=== PATIENT | male | born 1985 | race Caucasian/White ===

== ENCOUNTER 2020-04-30 07:30 | Observation (INO) ==
[2020-04-30] MEDS ORDERED: DIPH/TET/ACEL PERT BOOSTER VACCINE 0.5 ML VIAL IM ONE (07:54)
[2020-04-30] MEDS ORDERED: VANCOMYCIN INJ 1,500 MG in SODIUM CHLORIDE 0.9% 250 ML IV STA (07:54)
[2020-04-30] MEDS ORDERED: VANCOMYCIN 1,000 MG VIAL ONE (08:22)
[2020-04-30] MEDS ORDERED: MEROPENEM 500 MG VIAL ONE ×2 (08:39→08:58)
[2020-04-30] MEDS ORDERED: diphenhydrAMINE 50 MG/1 ML VIAL ONE (08:40)
[2020-04-30] MEDS ORDERED: diphenhydrAMINE 50 MG/1 ML VIAL IV STA (08:40)
[2020-04-30] MEDS ORDERED: MEROPENEM 1,000 MG in SODIUM CHLORIDE 0.9% 100 ML IV STA (08:40)
[2020-04-30 09:56] LABS: Basophils # 0.1 10*3/uL (0.0-0.2); Basophils % 1.2 % (0.0-0.8); Eosinophils # 0.2 10*3/uL (0.0-0.87); Hematocrit 48.2 VOL% (42.0-52.0); Hemoglobin 16.2 GM/DL (14.0-18.0); Immature Granulocytes % 0.3 %; Immature Granulocytes Absolute 0.03 #; Lymphocytes # 1.8 10*3/uL (1.4-4.0); Lymphocytes % 18.3 % (21.2-54.2); Mean Corpuscular HGB Conc 33.6 GM/DL (32-36); Mean Platelet Volume 10.8 FL (9.6-12.0); Monocytes % 10.3 % (1.7-12.7); Neutrophils % 67.9 % (38.7-73.9); Platelet Count 287 T/CUMM (130-400); Red Blood Count 5.67 MC/CUMM (3.8-5.5); Red Cell Distribution Width 14.1 % (9.3-17.3); White Blood Count 10.1 T/CUMM (4-12)
[2020-04-30 10:05] LABS: Calcium 9.1 MG/DL (8.5-10.1)
[2020-04-30] MEDS ORDERED: NICOTINE 21 MG/24 HR PATCH TRANSDERM PRN (10:31)
[2020-04-30] MEDS ORDERED: GLUCAGON 1 MG VIAL IM PRN (10:31)
[2020-04-30] MEDS ORDERED: DEXTROSE 50% 25 GM/50 ML VIAL IV PRN (10:31)
[2020-04-30] MEDS: ACETAMINOPHEN 325 MG TABLET PO SCH ×2 (15:37→18:13)
[2020-04-30] MEDS: CLINDAMYCIN INJ 900 MG in PREMIX 1 EACH IV SCH ×2 (16:13→21:31)
[2020-04-30] MEDS: IBUPROFEN 800 MG TABLET PO SCH ×2 (16:15→21:31)
[2020-04-30] MEDS ORDERED: HydrOXYzine PAMOATE 25 MG CAPSULE PO ONE (23:00)
[2020-05-01] MEDS: ACETAMINOPHEN 325 MG TABLET PO SCH ×2 (00:05→06:02)
[2020-05-01 02:30] LABS: Basophils # 0.1 10*3/uL (0.0-0.2); Basophils % 1.3 % (0.0-0.8); Eosinophils # 0.4 10*3/uL (0.0-0.87); Eosinophils % 4.3 % (0.00-10.9); Hematocrit 45.4 VOL% (42.0-52.0); Hemoglobin 15.2 GM/DL (14.0-18.0); Immature Granulocytes % 0.4 %; Immature Granulocytes Absolute 0.03 #; Lymphocytes # 2.3 10*3/uL (1.4-4.0); Lymphocytes % 26.3 % (21.2-54.2); Mean Corpuscular HGB Conc 33.5 GM/DL (32-36); Mean Corpuscular Volume 85.2 FL (87-102); Monocytes % 12.7 % (1.7-12.7); Platelet Count 222 T/CUMM (130-400); Red Blood Count 5.33 MC/CUMM (3.8-5.5); Red Cell Distribution Width 13.9 % (9.3-17.3); White Blood Count 8.6 T/CUMM (4-12)
[2020-05-01] MEDS: IBUPROFEN 800 MG TABLET PO SCH ×2 (03:34→08:35)
[2020-05-01] MEDS: CLINDAMYCIN INJ 900 MG in PREMIX 1 EACH IV SCH ×2 (03:34→08:35)
[2020-05-01 07:52] VITALS: BP 136/68
== END 2020-05-01 09:44 | disposition home or self-care (01) ==
LOC: N.ED 07:30 → N.EDINP 07:30 → N.5E 11:29
PROVIDERS: ADMIT Internal Medicine Geriatric Medicine; ATTEND Internal Medicine Geriatric Medicine